=== PATIENT | female | born 1970 | race Caucasian/White ===

== ENCOUNTER 2021-11-08 16:14 | Inpatient (IN) | payer BC, SELFPAY ==
--- NOTE | 2021-11-08 16:22 | ED_ITS ---
HPI - General Adult General: Chief complaint: Anxiety Stated complaint: SUICIDAL IDEATIONS Time Seen by Provider: 11/08/21 16:17 History of Present Illness: HPI: [51]yo patient w/ hx of depression BIBA for suicidal ideation. She was recently discharged from [facility] yesterday f or concerns of suicidal ideation. Patient tells me that she is concerned about her worsening depression want to get help before things get worse. For On arrival, the patient is AAOx3 and cooperative with my evaluation. No focal complaints of chest pain, shortness of breath, palpitations, N/V, focal GI/ complaints. Currently denies HI. No complaints of hallucinations. Onset: acute Duration: ongoing Location: home Severity: severe Associated symptoms: Deny chest pain, dyspnea, nausea, rash, palpitations or vomiting Review of Systems Const: Denies: fever(s) or chills Eyes: Denies: change in vision ENMT: Denies: mouth pain Card: Denies: chest pain or palpitations Resp: Denies: dyspnea or non-productive cough GI: Denies: abdominal pain, nausea, vomiting or diarrhea : Denies: dysuria Musc: Denies: extremity pain Skin/Breast: Denies: rash or new lesions Neuro: Denies: weakness in extremities Psych: Reports: suicidal ideation David/Lymph: Denies: easy bruising PFSH ED PFSH: Medical History (Updated 11/08/21 @ 16:26 by Casimiro Good MD) Depression Social History (Updated 11/08/21 @ 16:23 by Casimiro Good MD) Smoking and tobacco status: never smoked Alcohol intake: never Substance/Drug Use: never Physical Exam Const: COMMON NORMALS: alert HENMT: COMMON NORMALS: atraumatic HEAD & SCALP: atraumatic MOUTH: moist mucous membranes not abnormal Eye: COMMON NORMALS: EOMs intact bilaterally and conjunctivae normal CONJUNCTIVA: Yes conjunctivae normal Neck/C-Spine: COMMON NORMALS: full ROM and supple Resp: COMMON NORMALS: normal respiratory effort and clear to auscultation bilaterally AUSCULTATION: clear to auscultation bilaterally Cardio: COMMON NORMALS: regular rate RATE: regular rate GI: COMMON NORMALS: Soft to palpation and non-tender PALPATION: Yes Soft to palpation Extremity: COMMON NORMALS: full ROM Neuro: SENSORIUM/ORIENTATION: Yes alert MOTOR EXAM: No Abnormal motor strength present and Other motor observations present (no focal motor deficits) Psych: COMMON NORMALS: speech normal SPEECH: Yes normal speech MOOD & AFFECT: Yes euthymic mood Course Vital Signs: Vital signs: Vital Signs Temperature 98.1 F 11/08/21 16:46 Pulse Rate 66 11/08/21 16:46 Respiratory Rate 16 11/08/21 16:46 Blood Pressure 135/88 11/08/21 16:46 Pulse Oximetry 92 11/08/21 16:46 MDM - General Adult Medical Decision Making [51]yo patient w/ hx of depression presenting for depression and suicidal ideation. HDS, exam within normal limit Thoughts are linear and organized, and the patient has no AH/VH, or HI. Clinically the patient displays no overt toxidrome; they are well appearing, with low suspicion for toxic ingestion given history and exam. Symptoms unlikely 2/2 anemia, hypothyroidism, infection, or ICH. Workup: CBC, CMP, Lipase, salicylate/tylenol, UDS Lab findings: wnl, +marijuana in the urine [6:00pm] On reassessment, labs and workup wnl. Patient is hemodynamically stable with no acute medical complaints. Case discussed with psychiatric provider Dr. Mendez at [facility] psych inpatient with recommendation for admission Disposition: Psych Lab Data : 11/08/21 17:09 11/08/21 17:09 Laboratory Results WBC 12.5 10^3/uL (4.0-10.0) H 11/08/21 17:09 RBC 4.74 10^6/uL (4.1-5.3) 11/08/21 17:09 Hgb 15.7 g/dL (11.5-15.3) H 11/08/21 17:09 Hct 46.1 % (37.0-47.0) 11/08/21 17:09 MCV 97.3 fl (81-99) 11/08/21 17:09 MCH 33.1 pg (28.0-34.0) 11/08/21 17:09 MCHC 34.1 g/dL (30.0-36.0) 11/08/21 17:09 RDW 12.9 % (12.1-15.1) 11/08/21 17:09 Plt Count 249 10^3/cmm (130-400) 11/08/21 17:09 MPV 9.7 fL (7.4-10.4) 11/08/21 17:09 Neut % (Auto) 67.5 % 11/08/21 17:09 Lymph % (Auto) 23.6 % 11/08/21 17:09 [place] % (Auto) 7.8 % 11/08/21 17:09 Eos % (Auto) 0.2 % 11/08/21 17:09 Baso % (Auto) 0.3 % 11/08/21 17:09 Neut # (Auto) 8.43 10^3/uL (1.8-7.7) H 11/08/21 17:09 Lymph # (Auto) 3.0 10^3/uL (0.8-4.8) 11/08/21 17:09 [place] # (Auto) 1.0 10^3/uL (0.2-0.9) H 11/08/21 17:09 Eos # (Auto) 0.0 10^3/uL (0.0-0.8) 11/08/21 17:09 Baso # (Auto) 0.0 10^3/uL (0.0-0.1) 11/08/21 17:09 Nucleated RBC % (auto) 0 % 11/08/21 17:09 Nucleated RBCs # 0.0 /100WBC 11/08/21 17:09 Urine Opiates Screen Negative ng/mL (Negative) 11/08/21 16:25 Ur Barbiturates Screen Negative ng/mL (Negative) 11/08/21 16:25 Ur Phencyclidine Scrn Negative ng/mL (Negative) 11/08/21 16:25 Ur Amphetamines Screen Negative ng/mL (Negative) 11/08/21 16:25 U Benzodiazepines Scrn Negative ng/mL (Negative) 11/08/21 16:25 Urine Cocaine Screen Negative ng/mL (Negative) 11/08/21 16:25 U Marijuana (THC) Screen Positive ng/mL (Negative) H 11/08/21 16:25 Discharge Plan Discharge Patient Disposition: Admitted As Inpatient Clinical Impression: Depression, Suicidal ideations Coding Level of Care Code 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
[2021-11-08 16:42] VITALS: BP 135/92; PULSE 66; RESP 16; TEMP 36.7; O2SAT 91; BMI 29.9
[2021-11-08 16:46] VITALS: BP 135/88; PULSE 66; RESP 16; TEMP 36.7; O2SAT 92
[2021-11-08 17:01] LABS: Amphetamines Screen Urine Negative (Negative); Barbiturates Screen Urine Negative (Negative); Benzodiazepines Screen Urine Negative (Negative); Cocaine Screen Urine Negative (Negative); Opiate Screen Urine Negative (Negative); PCP Screen Urine Negative (Negative); THC Screen Urine Positive (Negative)
[2021-11-08 17:31] LABS: Basophils % 0.3 %; Eosinophils % 0.2 %; Hematocrit 46.1 % (37.0-47.0); Hemoglobin 15.7 g/dL (11.5-15.3); Lymphocytes % 23.6 %; Mean Corpuscular HGB Conc 34.1 g/dL (30.0-36.0); Mean Corpuscular Hemoglobin 33.1 pg (28.0-34.0); Mean Corpuscular Volume 97.3 fl (81-99); Mean Platelet Volume 9.7 fL (7.4-10.4); Monocytes % 7.8 %; Neutrophils # 8.43 10^3/uL (1.8-7.7); Neutrophils % 67.5 %; Nucleated Red Blood Cells % 0 %; Platelet Count 249 10^3/cmm (130-400); Red Blood Count 4.74 10^6/uL (4.1-5.3); Red Cell Distribution Width 12.9 % (12.1-15.1); White Blood Count 12.5 10^3/uL (4.0-10.0)
[2021-11-08 18:14] VITALS: BP 146/87; PULSE 88; RESP 16; TEMP 36.8; O2SAT 96
[2021-11-08 18:29] LABS: Alanine Aminotransferase 54 U/L (0-33); Albumin Level 3.8 g/dL (3.5-5.2); Alkaline Phosphatase 100 IU/L (35-105); Aspartate Amino Transferase 45 U/L (0-32); Blood Urea Nitrogen 14 mg/dL (6-20); Calcium 9.2 mg/dL (8.5-10.5); Carbon Dioxide 21 mmol/L (22-29); Chloride 108 mmol/L (98-107); Globulin 3.2 g/dL (1.3-4.6); Glomerular Filtration Rate 75.6 mL/min (90-130); Glucose 117 mg/dL (65-115); Lipase 31 U/L (13-60); Osmolality Calculated 294 mOsm/kg (285-295); Sodium 141 mmol/L (136-145); Total Bilirubin 0.5 mg/dL (0.15-1.2)
[2021-11-08 18:30] LABS: Acetaminophen < 5.0 ug/mL (10-30); Salicylate < 0.3 mg/dL (3-10)
[2021-11-08] MEDS: trazodone 50 mg Tablet PO (20:07)
[2021-11-08] MEDS: acetaminophen 325 mg Tablet 650 MG PO (20:07)
[2021-11-08] MEDS: hyDROXYzine 25 mg Capsule 50 MG PO (20:08)
[2021-11-08] MEDS: tizanidine 4 mg Tablet 8 MG PO (20:10)
[2021-11-08] MEDS: cetylpyridinium Lozenge 1 EACH MUCOUS MEM (20:13)
[2021-11-08] MEDS: nicotine 2 mg Gum BUCCAL (20:13)
[2021-11-08 20:42] VITALS: BP 142/91; PULSE 88; RESP 20; TEMP 36.7; O2SAT 97
[2021-11-09 06:00] VITALS: BP 132/91; PULSE 79; RESP 19; TEMP 36.6; O2SAT 98
[2021-11-09] MEDS: tizanidine 4 mg Tablet 8 MG PO ×3 (06:12→20:35)
[2021-11-09] MEDS: cetylpyridinium Lozenge 1 EACH MUCOUS MEM (06:13)
[2021-11-09] MEDS: nicotine 2 mg Gum BUCCAL ×6 (07:04→20:35)
[2021-11-09] MEDS: hyDROXYzine 25 mg Capsule 50 MG PO (09:24)
[2021-11-09] MEDS: cetirizine 10 mg Tablet PO (09:24)
[2021-11-09] MEDS: fluticasone nasal spray 16gm Btl 1 SPRAY INTRANASAL (09:24)
[2021-11-09] MEDS: pantoprazole DR 40 mg Tablet PO (09:25)
[2021-11-09] MEDS: cholecalciferol (vitamin D3) 5,000 unit Tablet 5000 UNIT PO (09:25)
[2021-11-09] MEDS: montelukast sodium 10 mg Tablet PO (09:25)
--- NOTE | 2021-11-09 11:00 | PC.SOCIAL ---
Patient did not attend group due to having a panic attack right before it started. She did intend to attend and Emergency Pairer Substandard provided information outside of the group setting.
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
[2021-11-09 14:00] VITALS: BP 110/81; PULSE 72; RESP 16; TEMP 36.3; O2SAT 95
[2021-11-09] MEDS: escitalopram 10 mg Tablet PO (18:31)
[2021-11-09] MEDS: trazodone 100 mg Tablet PO (20:32)
[2021-11-09] MEDS: OLANZapine 5 mg ODT PO (20:32)
[2021-11-09 20:38] VITALS: BP 138/85; PULSE 72; RESP 18; TEMP 36.9; O2SAT 96
[2021-11-10] MEDS: tizanidine 4 mg Tablet 8 MG PO ×2 (05:51→13:16)
[2021-11-10] MEDS: nicotine 2 mg Gum BUCCAL ×5 (05:59→15:24)
[2021-11-10 06:00] VITALS: BP 178/92; PULSE 68; RESP 17; TEMP 36.6; O2SAT 95
[2021-11-10] MEDS: fluticasone nasal spray 16gm Btl 1 SPRAY INTRANASAL (08:54)
[2021-11-10] MEDS: cholecalciferol (vitamin D3) 5,000 unit Tablet 5000 UNIT PO (08:55)
[2021-11-10] MEDS: montelukast sodium 10 mg Tablet PO (08:55)
[2021-11-10] MEDS: ibuprofen 800 mg tablet PO ×2 (08:55→16:12)
[2021-11-10] MEDS: hyDROXYzine 25 mg Capsule 50 MG PO (08:55)
[2021-11-10] MEDS: escitalopram 10 mg Tablet PO (08:56)
[2021-11-10] MEDS: pantoprazole DR 40 mg Tablet PO (08:56)
[2021-11-10] MEDS: cetirizine 10 mg Tablet PO (08:56)
--- NOTE | 2021-11-10 09:12 | PC.NURSE ---
AM Assesment Denies SI/HI and AVH at this time. States, I am just really depressed and knew I needed help. Reports back and hip pain, notified med nurse to administer PRN medications as ordered. Appears to be open to education and learning opportunities. Mild anxiety noted. States she is axious about getting the help she needs. Reassured patient we are here to help. Educated on group times and social service assistance. Verbalized understanding. All questions answered and support voiced.
[2021-11-10 14:00] VITALS: BP 128/87; PULSE 69; RESP 16; TEMP 37.1; O2SAT 97
--- NOTE | 2021-11-10 15:34 | PC.SOCIAL ---
Patient attended and participated in group.
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
[2021-11-10 16:41] VITALS: BP 128/87; PULSE 69; RESP 16; TEMP 37.1; O2SAT 97
== END 2021-11-10 16:50 | disposition home or self-care (01) | DRG 885 ==
LOC: ER 16:27 → NP 18:12
PROVIDERS: Admitting Provider Psychiatry & Neurology Psychiatry; Emergency Provider Emergency Medicine; Visit Provider Psychiatry & Neurology Psychiatry
DX: F33.9 Major depressive disorder, recurrent, unspecified (principal); R45.851 Suicidal ideations; F17.210 Nicotine dependence, cigarettes, uncomplicated; F10.20 Alcohol dependence, uncomplicated; F12.20 Cannabis dependence, uncomplicated; F15.21 Other stimulant dependence, in remission; F11.21 Opioid dependence, in remission; Z87.820 Personal history of traumatic brain injury; B19.20 Unspecified viral hepatitis C without hepatic coma; F43.10 Post-traumatic stress disorder, unspecified
CPT/HCPCS: 80053; 80306; 80307; 83690; 85025; 97150; 97165; 99285